=== PATIENT | female | born 1990 | race African-American/Black ===

== ENCOUNTER 2018-06-09 10:57 | Emergency (ER) | payer MEDICAID ==
[~2018-06-09] VITALS: Ht 165.1 cm; Wt 141.0 kg
[2018-06-09 18:06] LABS: BASOPHILS % 0.8 % (0.0-2.0); EOSINOPHILS % 0.9 % (0.0-5.0); HEMATOCRIT. 39.2 % (36.0-48.0); HEMOGLOBIN. 12.5 g/dL (12.0-16.0); LYMPHOCYTES % 34.5 % (20.0-50.0); MEAN CORPUSCULAR HEMOGLOBIN 25.3 pg (28.0-32.0); MEAN CORPUSCULAR VOLUME 79.4 fL (81.0-99.0); MEAN PLATELET VOLUME 9.1 fl (7.4-10.4); MONOCYTES % 5.5 % (2.0-8.0); NEUTROPHILS % 58.3 % (40.0-76.0); PLATELET 361 x1000/uL (130-400); RED BLOOD CELL COUNT 4.94 mill/uL (4.2-5.4); RED CELL DISTRIBUTION WIDTH 17.7 % (11.6-14.6)
[2018-06-09 18:10] LABS: CHLORIDE 101 mEq/L (98-107)
[2018-06-09 18:12] LABS: INR 1.1; PROTHROMBIN TIME 11.2 sec (9.1-11.1)
[2018-06-09 18:44] LABS: CLARITY URINE CLEAR (CLEAR); COLOR URINE YELLOW (YELLOW); KETONES URINE 3+ (NEGATIVE); LEUKOCYTE ESTERASE URINE 2+ (NEGATIVE); NITRITE URINE NEGATIVE (NEGATIVE); OCCULT BLOOD URINE NEGATIVE (NEGATIVE); PH URINE 5.5 (4.5-8.0); PROTEIN URINE NEGATIVE (NEGATIVE); SPECIFIC GRAVITY URINE 1.025 (1.005-1.030); UROBILINOGEN URINE 0.2 E.U./dL (0.2-1.0)
[2018-06-09 18:46] VITALS: BP 108/75
== END 2018-06-09 19:00 | disposition home or self-care (01) ==
LOC: ER 10:57
DX: K62.5 Hemorrhage of anus and rectum (principal); N30.00 Acute cystitis without hematuria; D72.829 Elevated white blood cell count, unspecified; Z88.3 Allergy status to other anti-infective agents
CPT/HCPCS: 36415; 81025; 99283

== ENCOUNTER 2019-03-16 05:45 | Emergency (ER) | payer MEDICAID ==
[~2019-03-16] VITALS: Ht 165.1 cm; Wt 151.0 kg
[2019-03-16] MEDS ORDERED: SODIUM CHLORIDE 0.9% 1,000 ML IV ONE (06:44)
[2019-03-16] MEDS ORDERED: ONDANSETRON HCL 4MG/2ML INJ IV STA (06:44)
[2019-03-16] MEDS ORDERED: KETOROLAC 30MG/ML VIAL IV STA (06:44)
[2019-03-16 08:30] VITALS: BP 116/74
== END 2019-03-16 08:43 | disposition home or self-care (01) ==
LOC: ER 05:45
DX: J02.8 Acute pharyngitis due to other specified organisms (principal); Z88.3 Allergy status to other anti-infective agents
CPT/HCPCS: 87070; 87430; 96374; 96375; 99283; J1885; J2405; J7030

== ENCOUNTER 2020-12-17 23:28 | Emergency (ER) | payer MEDICAID ==
[~2020-12-17] VITALS: Ht 165.1 cm; Wt 163.0 kg
[2020-12-18] MEDS ORDERED: GUAI-453 MT ×2 (04:03)
[2020-12-18] MEDS ORDERED: GUAI600T44 MT (04:04)
[2020-12-18 04:18] VITALS: BP 142/87
== END 2020-12-18 04:42 | disposition home or self-care (01) ==
LOC: ER 23:28
DX: R05 Cough (principal); E11.9 Type 2 diabetes mellitus without complications
CPT/HCPCS: 71045; 93005; 99283